=== PATIENT | male | born 1945 | race Hispanic/Latino ===

== ENCOUNTER → 2022-10-08 | Outpatient (CLI) | payer OTHER ==
[~2022-10-08] VITALS: Ht 175.3 cm; Wt 75.9 kg
[~2022-10-08] MED LIST: TAMS-1 PO; THYR90TA PO
[2022-10-08 10:46] LABS: BASOPHILS # (AUTO) 0.06 K/uL (0.00-0.20); BASOPHILS % (AUTO) 0.7 % (0.0-5.0); EOSINOPHILS # (AUTO) 0.12 K/uL (0.00-0.70); EOSINOPHILS % (AUTO) 1.4 % (0.0-8.0); HEMATOCRIT 43.1 % (42-54); IMMATURE GRANULOCYTE ABSOLUTE 0.03 K/uL (0-1); LYMPHOCYTES # (AUTO) 1.6 K/uL (1.0-4.8); LYMPHOCYTES % (AUTO) 18.3 % (21.0-51.0); MEAN CORPUSCULAR HEMOGLOBIN 31.4 pg (27.0-33.0); MEAN CORPUSCULAR HGB CONC 32.5 g/dL (32.0-36.0); MEAN CORPUSCULAR VOLUME 96.6 fL (79-99); MONOCYTES # (AUTO) 0.6 K/uL (0.1-1.0); MONOCYTES % (AUTO) 7.5 % (3.0-13.0); NEUTROPHILS # (AUTO) 6.2 K/uL (1.8-7.7); NEUTROPHILS % (AUTO) 71.7 % (40.0-77.0); PLATELET COUNT (AUTO) 262 K/uL (130-400); RED BLOOD CELL COUNT(AUTO) 4.46 MIL/uL (4.50-6.20); RED CELL DISTRIBUTION WIDTH 14.2 % (11.0-15.5); WHITE BLOOD COUNT (AUTO) 8.6 K/uL (4.8-10.8)
[2022-10-08 10:55] LABS: CREATININE 1.2 mg/dL (0.5-1.5); POTASSIUM 4.4 mmol/L (3.5-5.1)
[2022-10-08 10:59] LABS: INR 0.98 (0.85-1.15); PROTHROMBIN TIME 11.4 SEC (9.6-11.6)
[2022-10-08 11:00] LABS: PARTIAL THROMBOPLASTIN TIME 30.1 SEC (26.3-35.5)
[2022-10-08 11:13] VITALS: BP 114/71; PULSE 79; RESP 18
[2022-10-08 11:18] LABS: APPEARANCE,URINE CLOUDY (CLEAR); BILIRUBIN,URINE NEGATIVE (NEGATIVE); COLOR,URINE LIGHT-YELLOW (YELLOW); GLUCOSE, URINE (UA) NEGATIVE (NEGATIVE); KETONES,URINE NEGATIVE (NEGATIVE); LEUKOCYTE ESTERASE ,URINE 500 Leu/uL (NEGATIVE); NITRATE,URINE NEGATIVE (NEGATIVE); OCCULT BLOOD,URINE NEGATIVE (NEGATIVE); PH,URINE 7.5 (5.0-8.0); PROTEIN,URINE 20 mg/dL (NEGATIVE); UROBILINOGEN,URINE 0.2 mg/dL (0.2-1.0)
[2022-10-08 11:27] LABS: ADD UA MICROSCOPIC YES
[2022-10-08 11:50] LABS: BACTERIA,URINE FEW /HPF (None Seen); CALCIUM OXALATE CRYSTALS,UR RARE /LPF (None Seen); UNCLASSIFIED CRYSTAL 1 /HPF (None Seen); WBC,URINE 51-100 /HPF (0-1)
== END | disposition home or self-care (01) ==
LOC: EDSTATUS 10:00 → DAH 10:00
PROVIDERS: ATTEND Urology
DX: Z01.818 Encounter for other preprocedural examination (principal); Z20.822 Contact with and (suspected) exposure to COVID-19; N40.1 Benign prostatic hyperplasia with lower urinary tract symptoms; I48.91 Unspecified atrial fibrillation; Z79.01 Long term (current) use of anticoagulants
CPT/HCPCS: 71045; 87426; 80048; 85025; 85610; 85730; 87077; 87088; 87186; 81001; 36415; 93005; A6260

== ENCOUNTER 2022-10-24 10:59 | Emergency (ER) | payer OTHER ==
[~2022-10-24] VITALS: Ht 177.8 cm; Wt 72.6 kg
[2022-10-24 13:13] VITALS: BP 124/69; PULSE 104; RESP 18; O2SAT 99
[2022-10-24 13:46] LABS: APPEARANCE,URINE HAZY (CLEAR); BILIRUBIN,URINE NEGATIVE (NEGATIVE); COLOR,URINE YELLOW (YELLOW); GLUCOSE, URINE (UA) NEGATIVE (NEGATIVE); KETONES,URINE NEGATIVE (NEGATIVE); LEUKOCYTE ESTERASE ,URINE 250 Leu/uL (NEGATIVE); NITRATE,URINE 2+ (NEGATIVE); OCCULT BLOOD,URINE LARGE (NEGATIVE); PROTEIN,URINE NEGATIVE (NEGATIVE); UROBILINOGEN,URINE 0.2 mg/dL (0.2-1.0)
[2022-10-24 13:47] LABS: ADD UA MICROSCOPIC YES
[2022-10-24 14:07] LABS: BACTERIA,URINE FEW /HPF (None Seen); CALCIUM OXALATE CRYSTALS,UR RARE /LPF (None Seen)
[2022-10-24] MEDS ORDERED: CEPH500B PO (14:07)
== END 2022-10-24 14:18 | disposition home or self-care (01) ==
LOC: EDH 10:59
DX: T83.091A Other mechanical complication of indwelling urethral catheter, initial encounter (principal); N39.0 Urinary tract infection, site not specified; Z79.890 Hormone replacement therapy; Z90.49 Acquired absence of other specified parts of digestive tract; Y69 Unspecified misadventure during surgical and medical care; Y92.9 Unspecified place or not applicable
CPT/HCPCS: 81001; 87088

== ENCOUNTER 2022-10-28 09:44 | Day surgery (SDC) | payer OTHER ==
[2022-10-27 16:42] VITALS: BP 137/83; PULSE 68; RESP 16
[~2022-10-28] VITALS: Ht 177.8 cm; Wt 75.0 kg
[2022-10-28] VITALS (18 sets, daily range): BP systolic 128–156; BP diastolic 84–94; PULSE 69–107; RESP 15–18
[~2022-10-28 09:44] MED LIST changes: +CEPH500B PO
[2022-10-28] MEDS ORDERED: LACTATED RINGERS 1000ML 1,000 ML IV ONE (09:53)
[2022-10-28] MEDS ORDERED: CEFTRIAXONE 1G VIAL ONE (09:53)
[2022-10-28] MEDS ORDERED: LIDOCAINE PF 100MG/5ML (2%) SYRINGE 5ML ONE (12:30)
[2022-10-28] MEDS ORDERED: SUCCINYLCHOLINE CHLORIDE 20 MG/ML 10 ML VIAL ONE (12:30)
[2022-10-28] MEDS ORDERED: DEXAMETHASONE SOD PHOSPHATE 10MG/ML 1ML VIAL ONE (12:31)
[2022-10-28] MEDS ORDERED: GLYCOPYRROLATE 1 MG/5 ML SYRINGE ONE (12:31)
[2022-10-28] MEDS ORDERED: MIDAZOLAM HCL 1 MG/ML 2ML VIAL ONE (12:31)
[2022-10-28] MEDS ORDERED: ROCURONIUM 10MG/1ML SYR 10 MG/ML ML ONE (12:31)
[2022-10-28] MEDS ORDERED: NEOSTIGMINE 5MG/5ML SYR IV ONE (12:31)
[2022-10-28] MEDS ORDERED: PROPOFOL 10 MG/ML 20ML VIAL IV ONE (12:31)
[2022-10-28] MEDS ORDERED: FENTANYL CITRATE PF 50 MCG/1 ML 2ML VIAL ONE ×2 (12:32→14:09)
[2022-10-28] MEDS ORDERED: ESMOLOL HCL 10 MG/ML 10 ML VIAL ONE ×2 (13:20→13:22)
[2022-10-28] MEDS ORDERED: SUGAMMADEX SODIUM 200 MG/2 ML VIAL IV ONE (14:47)
[2022-10-28] MEDS ORDERED: BACITRACIN 1 EACH PACKET TP ONE (16:07)
== END 2022-10-28 16:55 | disposition home or self-care (01) ==
LOC: DAH 09:44
PROVIDERS: ATTEND Urology
DX: N40.1 Benign prostatic hyperplasia with lower urinary tract symptoms (principal); Z20.822 Contact with and (suspected) exposure to COVID-19; R33.8 Other retention of urine; N32.89 Other specified disorders of bladder; I10 Essential (primary) hypertension; E03.9 Hypothyroidism, unspecified; Z90.89 Acquired absence of other organs; Z98.890 Other specified postprocedural states; Z79.899 Other long term (current) drug therapy
CPT/HCPCS: 52648; 88307; A4663; J7030; A4346; A4354; J7120; J3010 ×2; J3490 ×3; J1100; J2710; J0330; J2001; J0696; J2250; J2704; A4358; A4930; A4215; A4223; A4222; A4221; A4600